=== PATIENT | female | born 1980 | race Caucasian/White ===

== ENCOUNTER 2017-09-21 08:00 | Inpatient (IN) | payer BC ==
[2017-09-22] MEDS ORDERED: ePHEDrine 50 MG/ML SDV IVPUSH PRN (06:00)
[2017-09-22] MEDS ORDERED: Carboprost Tromethamine 250 MCG/1 ML Amp IM ONE (06:00)
[2017-09-22] MEDS ORDERED: Misoprostol 400 MCG (4 X 100 MCG TAB) RECTAL PRN (06:00)
[2017-09-22] MEDS ORDERED: Tranexamic Acid 1,000 MG in Sodium Chloride 0.9% 100 ML IV PRN (06:00)
[2017-09-22] MEDS ORDERED: Ondansetron 4 MG/2 ML SDV IV PRN (06:00)
[2017-09-22] MEDS ORDERED: ceFAZolin 2 GM in Sodium Chloride 0.9% 50 ML IV ONE (06:00)
[2017-09-22] MEDS ORDERED: Naloxone 2 MG/2 ML Syringe IVPUSH PRN (06:00)
[2017-09-22] MEDS ORDERED: Docusate Sodium 100 MG Cap PO PRN (06:00)
[2017-09-22] MEDS ORDERED: Methylergonovine 0.2 MG/1 ML Amp IM PRN (06:00)
[2017-09-22] MEDS ORDERED: diphenhydrAMINE 50 MG/ML SDV IVPUSH PRN (06:00)
[2017-09-22] MEDS ORDERED: Acetaminophen 325 MG Tab PO PRN (06:00)
[2017-09-22] MEDS ORDERED: Acetaminophen/oxyCODONE 325-5 MG Tab PO PRN (06:00)
[2017-09-22] MEDS ORDERED: Oxytocin/Normal Saline 30 UNIT/500 ML BAG IV ONE (06:09)
[2017-09-22] MEDS ORDERED: Bupivacaine 0.75%/D5W 2 ML Amp ONE (06:09)
[2017-09-22] MEDS ORDERED: Midazolam 1 MG/ML 2 ML SDV IV ONE (06:09)
[2017-09-22] MEDS ORDERED: Metoclopramide 10 MG/2 ML SDV IV ONE (06:09)
[2017-09-22] MEDS ORDERED: Morphine PF 1 MG/ML Amp ONE (06:09)
[2017-09-22] MEDS ORDERED: fentaNYL 100 MCG/2 ML SDV IV ONE (06:09)
[2017-09-22] MEDS ORDERED: LACTATED RINGERS IV ONE (06:09)
[2017-09-22] MEDS ORDERED: Bupivacaine 0.5% 30 ML SDV INJECT ONE ×2 (06:09→08:30)
[2017-09-22] MEDS ORDERED: ePHEDrine 50 MG/ML SDV IV ONE (06:09)
[2017-09-22] MEDS ORDERED: Ketorolac 30 MG/ML SDV IVPUSH ONE (06:09)
[2017-09-22] MEDS: Lactated Ringers 1,000 ML IV SCH ×3 (06:52→17:39)
[2017-09-22] MEDS ORDERED: Oxytocin/Normal Saline 60 UNIT/1,000 ML BAG ONE (07:05)
[2017-09-22] MEDS ORDERED: Citric Acid/Sodium Citrate Solution 30 ML Cup PO ONE (07:36)
[2017-09-22] MEDS ORDERED: Bupivacaine 0.5% 30 ML SDV ONE (08:26)
[2017-09-22] MEDS ORDERED: Oxytocin/Normal Saline 30 UNIT/500 ML BAG IV SCH (12:00)
[2017-09-22] MEDS: Simethicone 80 MG Tab.Chew PO SCH ×4 (13:01→22:08)
[2017-09-22] MEDS: Ketorolac 30 MG/ML SDV IVPUSH SCH ×2 (14:23→20:00)
--- NOTE | 2017-09-22 14:41 | OR ---
DATE: 09/22/2017 PROCEDURE PERFORMED: Repeat section. INDICATION: Katharina is a 37-year-old, 4, para 2, who presents at 39 and 0/7 weeks gestation for repeat section. PROCEDURE IN DETAIL: After spinal anesthesia was placed, the patient was placed on the operative table and prepped and draped in sterile fashion. Lidocaine was used to anesthetize the skin layer, she still had some mild sensation after the spinal anesthesia. Skin was sharply incised and then carried down to the subcutaneous tissues. Immediately upon incision, it was noted to have significant amount of scar tissue. There were very poorly defined tissue planes and it was very difficult to use both sharp and blunt dissection to dissect down through the tissue plane towards the peritoneum. The peritoneum was bluntly entered. Uterine incision was then made and 8 pound 12 ounce was delivered through the uterine incision. There was clear amniotic fluid. Uterus was then closed using a single layer of 0 Vicryl suture. There was very good hemostasis post closure. Fascia was then closed using 0 Vicryl; however, because of the poor tissue planes, this repair was very difficult, especially on her right incisional margin, there were very poor tissue planes and significant scar tissue. After closure was completed, incision was checked with vigorous exploration. There was a good strength of incision after closure. Three simple interrupted sutures were placed to close the subcutaneous tissue, and then the skin was closed using 3-0 Monocryl suture on a Ilia needle. She had good hemostasis post closure. The patient tolerated the procedure well. PREOPERATIVE DIAGNOSIS: 4, para 2, with previous section. POSTPROCEDURE DIAGNOSIS: 4, para 3, with previous section. [facility] /[id number]
[2017-09-23] MEDS: Lactated Ringers 1,000 ML IV SCH (01:07)
[2017-09-23] MEDS: Ketorolac 30 MG/ML SDV IVPUSH SCH (01:55)
[2017-09-23] MEDS ORDERED: Ibuprofen 800 MG Tab PO PRN (10:00)
[2017-09-23] MEDS: Simethicone 80 MG Tab.Chew PO SCH ×4 (10:11→20:51)
[2017-09-23] MEDS: Prenatal Multivitamin with Calcium/Folic Acid/Iron Tab PO SCH (10:11)
--- NOTE | 2017-09-23 11:14 | PN ---
DATE: 09/23/2017 SUBJECTIVE: Katharina is postoperative day #1, status post repeat section. She is doing fairly well this morning. She had her Greenberg removed last night and was able to ambulate without difficulty. She was passing gas and having bowel sounds this morning. Nursing reports that nursing was going fairly well with her infant. She has no concerns this morning. OBJECTIVE: Vital Signs: This morning, blood pressure 105/48, pulse is 81, and respiratory rate 18. General: Katharina is a pleasant 37-year-old woman in no acute distress. Abdomen: Soft. Nontender to palpation. Bandage was removed this morning. Incision is clean, dry, and intact. ASSESSMENT: Postoperative day #1, status post repeat section. PLAN: 1. She will get up and ambulate more today if possible. 2. Anticipate possible discharge tomorrow if all things continue to go well. [facility] /[id number] FRANCESCA
[2017-09-23] MEDS: Acetaminophen/oxyCODONE 325-5 MG Tab PO PRN (23:43)
[2017-09-24] MEDS: Acetaminophen/oxyCODONE 325-5 MG Tab PO PRN ×4 (01:01→11:18)
[2017-09-24 08:21] VITALS: BP 117/71
[2017-09-24] MEDS: Prenatal Multivitamin with Calcium/Folic Acid/Iron Tab PO SCH (11:21)
[2017-09-24] MEDS: Simethicone 80 MG Tab.Chew PO SCH (11:26)
== END 2017-09-24 11:30 | disposition home or self-care (01) | DRG 540 ==
LOC: DL.MS 09-22 06:08 → OBSVTOIN 09-22 08:41 → DL.MS 09-22 08:41
PROVIDERS: ADMIT Family Medicine; ATTEND Family Medicine
PROC: 10D00Z1 Extraction of Products of Conception, Low, Open Approach (ICD-10-PCS; principal; 2017-09-22)
DX: O34.211 Maternal care for low transverse scar from previous cesarean delivery (principal); Z3A.39 39 weeks gestation of pregnancy; Z37.0 Single live birth
CPT/HCPCS: 36415; 51701; 51702; 59025; 85027; 85460; 86850; 86870; 86900; 86901; 94010; A9270-GY; J0690; J1885; J2250; J2274; J2590; J2765; J2790; J3010; J7050; J7120

== ENCOUNTER 2019-09-02 10:04 | Inpatient (IN) | payer BC, OTHER ==
[~2019-09-02 10:04] MED LIST: Lactated Ringers 1,000 ML IV SCH; Oxytocin/Normal Saline 30 UNIT/500 ML BAG IV SCH; Sodium Chloride 0.9% 10 ML Syringe FLUSH PRN; Tranexamic Acid 1,000 MG in Sodium Chloride 0.9% 100 ML IV PRN
[2019-09-02] MEDS ORDERED: Oxytocin/Normal Saline 60 UNIT/1,000 ML BAG ONE (10:36)
[2019-09-02] MEDS ORDERED: Ondansetron 4 MG/2 ML SDV IVPUSH STA (10:45)
[2019-09-02] MEDS ORDERED: Ondansetron 4 MG/2 ML SDV ONE (10:51)
[2019-09-02] MEDS ORDERED: ceFAZolin 2 GM in Premix Bag 1 BAG IV ONE (11:30)
[2019-09-02] MEDS ORDERED: Citric Acid/Sodium Citrate Solution 30 ML Cup PO ONE (11:30)
[2019-09-02] MEDS: Lactated Ringers 1,000 ML IV SCH ×2 (11:39→18:42)
[2019-09-02] MEDS ORDERED: Ketorolac 30 MG/ML SDV IVPUSH ONE (14:00)
[2019-09-02] MEDS ORDERED: Ketorolac 30 MG/ML SDV ONE (14:49)
[2019-09-02] MEDS ORDERED: diphenhydrAMINE 50 MG/ML SDV IV ONE (15:57)
[2019-09-02] MEDS ORDERED: Lactated Ringers 400 ML IV ONE (15:57)
[2019-09-02] MEDS ORDERED: Morphine PF 1 MG/ML Amp ONE (15:57)
[2019-09-02] MEDS ORDERED: fentaNYL 100 MCG/2 ML SDV ONE (15:57)
[2019-09-02] MEDS ORDERED: Oxytocin/Normal Saline 30 UNIT/500 ML BAG IV ONE (15:59)
[2019-09-02] MEDS: Ketorolac 30 MG/ML SDV IVPUSH SCH (19:57)
[2019-09-02] MEDS ORDERED: Naloxone 2 MG/2 ML Syringe IVPUSH PRN (20:28)
[2019-09-02] MEDS ORDERED: diphenhydrAMINE 50 MG/ML SDV IVPUSH PRN (20:28)
[2019-09-02] MEDS ORDERED: Acetaminophen/oxyCODONE 325-5 MG Tab PO PRN (20:28)
[2019-09-02] MEDS ORDERED: ePHEDrine 50 MG/ML SDV IVPUSH PRN (20:28)
[2019-09-02] MEDS ORDERED: Carboprost Tromethamine 250 MCG/1 ML Amp IM PRN (20:28)
[2019-09-02] MEDS ORDERED: Acetaminophen 325 MG Tab PO PRN (20:28)
[2019-09-02] MEDS ORDERED: Misoprostol 400 MCG (4 X 100 MCG TAB) RECTAL PRN (20:28)
[2019-09-02] MEDS ORDERED: Methylergonovine 0.2 MG/1 ML Amp IM PRN (20:28)
[2019-09-02] MEDS ORDERED: Docusate Sodium 100 MG Cap PO PRN (20:28)
[2019-09-02] MEDS ORDERED: Ondansetron 4 MG/2 ML SDV IVPUSH PRN (20:28)
[2019-09-02] MEDS ORDERED: Lactated Ringers 1,000 ML IV SCH (20:30)
--- NOTE | 2019-09-02 20:37 | PCM.HPR ---
H & P Addendum review - H & P Addendum Review Date of Original H & P: 09/01/19 Date Reviewed: 09/02/19 Time Reviewed: 10:50 Patient was Examined: No Changes
--- NOTE | 2019-09-02 20:37 | PCM.PRNOTE ---
- Free Text/Narrative Note: Section Operative Report Date of Surgery: 09/02/2019 Surgeon: Bettye Ritchie MD Putty Maker: Davis Robles MD Pre-Operative Diagnosis: at 39w0d gestation History of section x3 Post-Operative Diagnosis: Same Procedure Performed: Repeat low transverse section Anesthesia: Spinal EBL: 600 mL IVF: 700 mL Drains: Greenberg catheter with 250 mL of urine output Specimens: None Complications: None apparent Findings: Normal uterus, tubes, and ovaries. Indication and Consent: The patient presented to floor today for scheduled at term due to hx of prior and desire for elective repeat . The patient understood that the risks of section include, but are not limited to, visceral or vascular injury, infection, blood loss and need for blood transfusion, prolonged hospitalization, and reoperation. The patient again stated understanding and desired to proceed. All questions were answered. Procedure in Detail: The patient was taken to the operating room where spinal anesthesia was placed and found to be adequate. 2 grams of cefazolin (Ancef) were given for infection prophylaxis. She was then prepped and draped in routine fashion in dorsal supine position with a left perez tilt. Greenberg catheter and pneumoboots were placed. A Pfannenstiel skin incision was made with a scalpel. The incision was carried down to the fascia sharply. The fascia was incised and extended laterally. Fascia and rectus muscle were noted to be scarred togther. The inferior aspect of the fascia was dissected off the fascia minimally with blunt technique. Hemostasis was achieved with the Bovie. The rectus musculature was in the midline down to the level of the pubic symphysis. Pre-peritoneal fatty ti ssue was bluntly dissected to expose the peritoneum. The peritoneum was found to be free of adherent bowel or bladder tissue and entered bluntly. The peritoneal opening was then extended superiorly and inferiorly to the bladder reflection with good visualization of the bladder. The Yoel retractor was inserted. Intraabdominal survey revealed scant, clear peritoneal fluid and thinned-out lower uterine segment. The lower uterine segment was incised with a scalpel. The amniotic sac was ruptured with an Allis clamp and clear fluid was noted. The uterine incision was extended bluntly with lateral and upward traction. The fetus was in cephalic position. The head was elevated out of the maternal pelvis with special attention paid to avoid using the uterine incision as a fulcrum. Gentle fundal pressure was applied once the head was brought into the incision. The was delivered with minimal difficulty, with use of a Kiwi vacuum for 1 pull. Bulb suctioning of the infant's nose and mouth was not performed on the operative field. Infant was left on mother's abdomen until the umbilical cord stopped pulsing. The cord was clamped and cut in standard fashion, and the infant was handed over to the awaiting nursery staff. IV oxytocin was initiated to facilitate uterine contractions. Cord blood was collected. The placenta was delivered intact with manual message of the uterine fundus along with gentle cord traction. The inside of the uterus was gently wiped with a lap sponge to assure complete removal of remaining products of conception. The uterine incision was closed with 0 -Vicryl suture in a running locked fashion. The incision was inspected and hemostasis was achieved. The ovaries and tubes were visualized and found to be normal. The uterus, tubes, and ovaries were returned to the abdominal cavity. The blood clots and fluid were wiped out of the abdomen and pelvis with moist laparotomy sponges. The uterine incision was re-inspected along with all other incised surfaces and good hemostasis was confirmed. The Yoel retractor was removed. The peritoneal layer was then reapproximated with 2-0 Vicryl. The fascia was then closed with 2-0 looped PDS suture with care not to include any underlying abdominal contents. The skin was closed with 4-0 Vicryl suture on a Ilia needle in a subcuticular fashion. Sponge and instrument counts were reported as correct times two. Pt tolerated procedure well and was taken to PACU in stable condition. Bettye Ritchie MD
--- NOTE | 2019-09-02 20:42 | PCM.DEL ---
L & D Note - General Info Date of Service: 09/02/19 Mother's Due Date: 09/09/19 - Delivery Note Delivery Outcome: Livebirth Infant Delivery Method: Repeat Infant Delivery Mode: Vacuum Extraction Presentation: Vertex Nuchal Cord: None Anesthesia Type: Spinal Amniotic Fluid Description: Clear Placenta: Intact Cord: 3 Vessels Estimated Blood Loss: 600 Mora: Bulb Syringe, Stimulated, Warmed, [place] Used, Warmer Used Provider: Bettye Ritchie Score 1 min: 8 Score 5 min: 9 Delivery Comments (Free Text/Narrative):: Please see procedure note for details - General Info Date of Service: 09/02/19 - Patient Data Vitals - Most Recent: Last Vital Signs Temp 36.8 C 09/02/19 20:00 Pulse 81 09/02/19 20:00 Resp 16 09/02/19 20:00 BP 109/59 L 09/02/19 20:00 Pulse Ox 98 09/02/19 20:00 Weight - Most Recent: 78.925 kg I&O - Last 24 Hours: Intake & Output 09/02/19 09/02/19 09/02/19 06:59 14:59 22:59 Intake Total 178 Output Total 250 1000 Balance -72 -1000 Lab Results Last 24 Hours: Laboratory Results - last 24 hr 09/02/19 09/02/19 09/02/19 Range/Units 10:30 10:42 10:42 WBC 6.2 (5.0-10.0) 10^3/uL RBC 3.63 L (4.2-5.4) 10^6/uL Hgb 12.3 (12.0-16.0) g/dL Hct 35.8 L (37.0-47.0) % MCV 98.6 D (80-100) fL MCH 33.9 (27.0-34.0) pg MCHC 34.4 (33.0-35.0) g/dL Plt Count 209 (150-450) 10^3/uL Neut % (Auto) 62.2 (42.2-75.2) % Lymph % (Auto) 27.4 (20.5-50.1) % [place] % (Auto) 8.8 H (2-8) % Eos % (Auto) 1.3 (1.0-3.0) % Baso % (Auto) 0.3 (0.0-1.0) % SARS-CoV-2 RNA (RT-PCR) Negative (NEGATIVE) Blood Type A NEGATIVE Gel Antibody Screen Positive Med Orders - Current: Current Medications Acetaminophen (Tylenol) 650 mg PO Q6H PRN PRN Reason: mild pain or fever Carboprost Tromethamine (Hemabate Ds) 250 mcg IM ONETIME PRN PRN Reason: Bleeding Diphenhydramine HCl (Benadryl) 25 mg IVPUSH Q6H PRN PRN Reason: Itching or Nausea Docusate Sodium (Colace) 100 mg PO Q12H PRN PRN Reason: Constipation Ephedrine Sulfate (Ephedrine Sulfate) 5 mg IVPUSH SEECOMMENT PRN PRN Reason: Other Tranexamic Acid 1,000 mg/ (Sodium Chloride) 110 mls @ 660 mls/hr IV ONETIME PRN PRN Reason: Bleeding Oxytocin/Sodium Chloride (Pitocin In Ns 30 Unit/500 Ml) 30 unit in 500 mls @ 2 mls/hr IV TITRATE EILEEN; Protocol Last Titration: 09/02/19 15:45 Dose: 0 munits/min, 0 mls/hr Documented by: Lactated Ringer's (Ringers, Lactated) 1,000 mls @ 125 mls/hr IV ASDIRECTED EILEEN Ibuprofen (Motrin) 800 mg PO Q8H PRN PRN Reason: mild pain or fever Ketorolac Tromethamine (Toradol) 15 mg IVPUSH Q6H EILEEN Stop: 09/03/19 08:01 Last Admin: 09/02/19 19:57 Dose: 15 mg Documented by: Methylergonovine Maleate (Methergine) 0.2 mg IM ONETIME PRN PRN Reason: Excessive Vaginal Bleeding Misoprostol (Cytotec) 800 mcg RECTAL ASDIRECTED PRN PRN Reason: Excessive bleeding Naloxone HCl (Narcan) 0.1 mg IVPUSH SEECOMMENT PRN PRN Reason: Respiratory Depression Ondansetron HCl (Zofran) 4 mg IVPUSH Q4H PRN PRN Reason: Nausea/Vomiting Oxycodone/Acetaminophen (Percocet 325-5 Mg) 1 tab PO Q4H PRN PRN Reason: Pain (moderate 4-6) Oxycodone/Acetaminophen (Percocet 325-5 Mg) 2 tab PO Q4H PRN PRN Reason: Pain (moderate 4-6) Simethicone (Simethicone) 160 mg PO QID [facility] Sodium Chloride (Saline Flush) 10 ml FLUSH ASDIRECTED PRN PRN Reason: Keep Vein Open Discontinued Medications Citric Acid/Sodium Citrate (Bicitra Solution) 30 ml PO ONETIME ONE Stop: 09/02/19 11:31 Last Admin: 09/02/19 11:38 Dose: 30 ml Documented by: Diphenhydramine HCl (Benadryl) 25 mg IV .STK-MED ONE Stop: 09/02/19 15:58 Fentanyl (Sublimaze) 20 mcg .XX .STK-MED ONE Stop: 09/02/19 15:58 Cefazolin Sodium/Dextrose 2 gm (/ Premix) 50 mls @ 100 mls/hr IV ONETIME ONE Stop: 09/02/19 11:59 Last Admin: 09/02/19 10:44 Dose: 100 mls/hr Documented by: Lactated Ringer's (Ringers, Lactated) 1,000 mls @ 125 mls/hr IV ASDIRECTED EILEEN Last Admin: 09/02/19 18:42 Dose: 125 mls/hr Documented by: Lactated Ringer's (Ringers, Lactated) 1,000 mls @ 500 mls/hr IV .BOLUS [facility] Last Admin: 09/02/19 10:54 Dose: 500 mls/hr Documented by: Oxytocin/Sodium Chloride (Pitocin In Ns 30 Unit/500 Ml) Confirm Administered Dose 60 unit in 1,000 mls @ as directed .ROUTE .STK-MED ONE Stop: 09/02/19 10:37 Lactated Ringer's (Ringers, Lactated) 400 mls @ as directed IV .STK-MED ONE Stop: 09/02/19 15:58 Oxytocin/Sodium Chloride (Pitocin In Ns 30 Unit/500 Ml) 30 unit in 500 mls @ as directed IV .STK-MED ONE Stop: 09/02/19 16:00 Ketorolac Tromethamine (Toradol) 30 mg IVPUSH ONETIME ONE Stop: 09/02/19 14:01 Last Admin: 09/02/19 14:56 Dose: 30 mg Documented by: Ketorolac Tromethamine (Toradol) Confirm Administered Dose 30 mg .ROUTE .STK-MED ONE Stop: 09/02/19 14:50 Last Admin: 09/02/19 16:40 Dose: Not Given Documented by: Morphine Sulfate (Duramorph Pf) 0.15 mg .XX .STK-MED ONE Stop: 09/02/19 15:58 Ondansetron HCl (Zofran) 4 mg IVPUSH ONETIME STA Stop: 09/02/19 10:46 Last Admin: 09/02/19 10:53 Dose: 4 mg Documented by: Ondansetron HCl (Zofran) Confirm Administered Dose 4 mg .ROUTE .STK-MED ONE Stop: 09/02/19 10:52 Last Admin: 09/02/19 16:40 Dose: Not Given Documented by: - Problem List & Annotations (1) care in third trimester SNOMED Code(s): 808481028, 67420296, 39752751, 952158708, 944005247 Code(s): Z34.93 - ENCNTR FOR SUPRVSN OF NORMAL PREG, UNSP, THIRD TRIMESTER Status: Acute Current Visit: Yes (2) Rh negative status during SNOMED Code(s): 337576563 Code(s): O26.899 - OTH RELATED CONDITIONS, UNSPECIFIED TRIMESTER; Z67.91 - UNSPECIFIED BLOOD TYPE, RH NEGATIVE Status: Acute Current Visit: Yes (3) Impaired glucose tolerance during Status: Acute Current Visit: Yes (4) History of section SNOMED Code(s): 312192648 Code(s): Z98.891 - HISTORY OF UTERINE SCAR FROM PREVIOUS SURGERY Status: Acute Current Visit: Yes (5) S/P repeat low transverse SNOMED Code(s): 906853008, 89654476, 812432131, 543485785, 231414560 Code(s): Z98.891 - HISTORY OF UTERINE SCAR FROM PREVIOUS SURGERY Status: Acute Current Visit: No - Problem List Review Problem List Initiated/Reviewed/Updated: Yes - My Orders Last 24 Hours: My Active Orders 09/02/19 Breakfast Clear Liquid Diet [DIET] 09/02/19 09:46 Sodium Chloride 0.9% [Saline Flush] 10 ml FLUSH ASDIRECTED PRN Tranexamic Acid [Cyklokapron] 1,000 mg Sodium Chloride 0.9% [Normal Saline] 100 ml IV ONETIME Resuscitation Status Routine 09/02/19 09:47 Patient Status [ADT] Routine Notify Provider Vital Signs OB [RC] ASDIRECTED Peripheral IV Care [RC] 06,,22 RT Incentive Spirometry [RC] ASDIRECTED Peripheral IV Insertion Adult [OM.PC] Routine 09/02/19 10:00 Oxytocin/Normal Saline [Pitocin in NS 30 UNIT/500 ML] 30 unit in 500 ml IV TITRATE 09/02/19 10:42 ANTIBODY IDENTIFICATION [BBK] Routine TYPE AND SCREEN [BBK] Routine WEAK D TEST [BBK] Routine 09/02/19 20:00 Ketorolac [Toradol] 15 mg IVPUSH Q6H 09/02/19 20:28 Antiembolic Devices [RC] PER UNIT ROUTINE Bedrest [RC] ASDIRECTED Communication Order [RC] PER UNIT ROUTINE Communication Order [RC] PER UNIT ROUTINE Communication Order [RC] Per Unit Routine Intake and Output [RC] Q8H Notify Provider Intake and Out [RC] ASDIRECTED RT Incentive Spirometry [RC] Q2HWA Urinary Catheter Removal [RC] Per Unit Routine Vital Signs [RC] PER UNIT ROUTINE Acetaminophen [Tylenol] 650 mg PO Q6H PRN Acetaminophen/oxyCODONE [Percocet 325-5 MG] 1 tab PO Q4H PRN Acetaminophen/oxyCODONE [Percocet 325-5 MG] 2 tab PO Q4H PRN Carboprost Tromethamine [Hemabate DS] 250 mcg IM ONETIME PRN Docusate Sodium [Colace] 100 mg PO Q12H PRN Ibuprofen [Motrin] 800 mg PO Q8H PRN Methylergonovine [Methergine] 0.2 mg IM ONETIME PRN Naloxone [Narcan] 0.1 mg IVPUSH SEECOMMENT PRN Ondansetron [Zofran] 4 mg IVPUSH Q4H PRN diphenhydrAMINE [Benadryl] 25 mg IVPUSH Q6H PRN ePHEDrine [ePHEDrine sulfate] 5 mg IVPUSH SEECOMMENT PRN miSOPROStoL [Cytotec] 800 mcg RECTAL ASDIRECTED PRN Antiembolic Hose [OM.PC] Per Unit Routine Assess Lochia [WOMSER] Per Unit Routine Assess Uterine Involution [WOMSER] Per Unit Routine Breast Pump [WOMSER] Per Unit Routine Sequential Compression Device [OM.PC] Per Unit Routine 09/02/19 20:30 Lactated Ringers @ 125 MLS/HR(1000ml) Lactated Ringers [Ringers, Lactated] 1,000 ml IV ASDIRECTED 09/02/19 21:00 Simethicone 160 mg PO QID 09/03/19 12:00 CBC W/O DIFF,HEMOGRAM [HEME] Routine - Assessment Assessment:: 39-year-old, now , status post repeat low transverse section at 39w0d - Plan Plan:: 1. Initiate routine postoperative cares 2. Plans to breastfeed 3. Anticipate discharge 09/05/2019 Bettye Ritchie MD
[2019-09-02] MEDS: Simethicone 80 MG Tab.Chew PO SCH (23:36)
[2019-09-03] MEDS: Ketorolac 30 MG/ML SDV IVPUSH SCH ×2 (02:10→08:38)
[2019-09-03] MEDS: Simethicone 80 MG Tab.Chew PO SCH ×5 (08:38→22:24)
--- NOTE | 2019-09-03 09:09 | PCM.PNPP ---
- General Info Date of Service: 09/03/19 Subjective Update: Patient is doing well today. Urine output has been very good. [place] was removed this morning. Has been out of bed. Is passing gas. No bowel movement yet. is going well. Tolerating a general diet. No fever, chills, dizziness or lightheadedness. Pain is well controlled. No concerns per patient or per nursing staff. Functional Status: Reports: Pain Controlled, Tolerating Diet - Review of Systems General: Reports: No Symptoms HEENT: Reports: No Symptoms Pulmonary: Reports: No Symptoms Cardiovascular: Reports: No Symptoms Genitourinary: Reports: No Symptoms Musculoskeletal: Reports: No Symptoms Skin: Reports: No Symptoms - General Info Date of Service: 09/03/19 - Patient Data Vital Signs - Most Recent: Last Vital Signs Temp 36.2 C 09/03/19 04:07 Pulse 78 09/03/19 04:07 Resp 16 09/03/19 04:07 BP 108/52 L 09/03/19 04:07 Pulse Ox 99 09/03/19 04:07 Weight - Most Recent: 78.925 kg I&O - Last 24 Hours: Intake & Output 09/02/19 09/03/19 09/03/19 22:59 06:59 14:59 Output Total 1999 3200 2500 Balance -1999 -3200 -2500 Lab Results - Last 24 Hours: Laboratory Results - last 24 hr 09/02/19 09/02/19 09/02/19 Range/Units 10:30 10:42 10:42 WBC 6.2 (5.0-10.0) 10^3/uL RBC 3.63 L (4.2-5.4) 10^6/uL Hgb 12.3 (12.0-16.0) g/dL Hct 35.8 L (37.0-47.0) % MCV 98.6 D (80-100) fL MCH 33.9 (27.0-34.0) pg MCHC 34.4 (33.0-35.0) g/dL Plt Count 209 (150-450) 10^3/uL Neut % (Auto) 62.2 (42.2-75.2) % Lymph % (Auto) 27.4 (20.5-50.1) % [place] % (Auto) 8.8 H (2-8) % Eos % (Auto) 1.3 (1.0-3.0) % Baso % (Auto) 0.3 (0.0-1.0) % SARS-CoV-2 RNA (RT-PCR) Negative (NEGATIVE) Blood Type A NEGATIVE Gel Antibody Screen Positive Med Orders - Current: Current Medications Acetaminophen (Tylenol) 650 mg PO Q6H PRN PRN Reason: mild pain or fever Carboprost Tromethamine (Hemabate Ds) 250 mcg IM ONETIME PRN PRN Reason: Bleeding Diphenhydramine HCl (Benadryl) 25 mg IVPUSH Q6H PRN PRN Reason: Itching or Nausea Docusate Sodium (Colace) 100 mg PO Q12H PRN PRN Reason: Constipation Ephedrine Sulfate (Ephedrine Sulfate) 5 mg IVPUSH SEECOMMENT PRN PRN Reason: Other Tranexamic Acid 1,000 mg/ (Sodium Chloride) 110 mls @ 660 mls/hr IV ONETIME PRN PRN Reason: Bleeding Oxytocin/Sodium Chloride (Pitocin In Ns 30 Unit/500 Ml) 30 unit in 500 mls @ 2 mls/hr IV TITRATE EILEEN; Protocol Last Titration: 09/02/19 15:45 Dose: 0 munits/min, 0 mls/hr Documented by: Lactated Ringer's (Ringers, Lactated) 1,000 mls @ 125 mls/hr IV ASDIRECTED EILEEN Last Admin: 09/03/19 02:12 Dose: 125 mls/hr Documented by: Ibuprofen (Motrin) 800 mg PO Q8H PRN PRN Reason: mild pain or fever Methylergonovine Maleate (Methergine) 0.2 mg IM ONETIME PRN PRN Reason: Excessive Vaginal Bleeding Misoprostol (Cytotec) 800 mcg RECTAL ASDIRECTED PRN PRN Reason: Excessive bleeding Naloxone HCl (Narcan) 0.1 mg IVPUSH SEECOMMENT PRN PRN Reason: Respiratory Depression Ondansetron HCl (Zofran) 4 mg IVPUSH Q4H PRN PRN Reason: Nausea/Vomiting Oxycodone/Acetaminophen (Percocet 325-5 Mg) 1 tab PO Q4H PRN PRN Reason: Pain (moderate 4-6) Oxycodone/Acetaminophen (Percocet 325-5 Mg) 2 tab PO Q4H PRN PRN Reason: Pain (moderate 4-6) Simethicone (Simethicone) 160 mg PO QID [facility] Last Admin: 09/03/19 08:38 Dose: 160 mg Documented by: Sodium Chloride (Saline Flush) 10 ml FLUSH ASDIRECTED PRN PRN Reason: Keep Vein Open Discontinued Medications Citric Acid/Sodium Citrate (Bicitra Solution) 30 ml PO ONETIME ONE Stop: 09/02/19 11:31 Last Admin: 09/02/19 11:38 Dose: 30 ml Documented by: Diphenhydramine HCl (Benadryl) 25 mg IV .STK-MED ONE Stop: 09/02/19 15:58 Fentanyl (Sublimaze) 20 mcg .XX .STK-MED ONE Stop: 09/02/19 15:58 Cefazolin Sodium/Dextrose 2 gm (/ Premix) 50 mls @ 100 mls/hr IV ONETIME ONE Stop: 09/02/19 11:59 Last Admin: 09/02/19 10:44 Dose: 100 mls/hr Documented by: Lactated Ringer's (Ringers, Lactated) 1,000 mls @ 125 mls/hr IV ASDIRECTED [facility] Last Admin: 09/02/19 18:42 Dose: 125 mls/hr Documented by: Lactated Ringer's (Ringers, Lactated) 1,000 mls @ 500 mls/hr IV .BOLUS [facility] Last Admin: 09/02/19 10:54 Dose: 500 mls/hr Documented by: Oxytocin/Sodium Chloride (Pitocin In Ns 30 Unit/500 Ml) Confirm Administered Dose 60 unit in 1,000 mls @ as directed .ROUTE .STK-MED ONE Stop: 09/02/19 10:37 Lactated Ringer's (Ringers, Lactated) 400 mls @ as directed IV .STK-MED ONE Stop: 09/02/19 15:58 Oxytocin/Sodium Chloride (Pitocin In Ns 30 Unit/500 Ml) 30 unit in 500 mls @ as directed IV .STK-MED ONE Stop: 09/02/19 16:00 Ketorolac Tromethamine (Toradol) 30 mg IVPUSH ONETIME ONE Stop: 09/02/19 14:01 Last Admin: 09/02/19 14:56 Dose: 30 mg Documented by: Ketorolac Tromethamine (Toradol) 15 mg IVPUSH Q6H EILEEN Stop: 09/03/19 08:01 Last Admin: 09/03/19 08:38 Dose: 15 mg Documented by: Ketorolac Tromethamine (Toradol) Confirm Administered Dose 30 mg .ROUTE .STK-MED ONE Stop: 09/02/19 14:50 Last Admin: 09/02/19 16:40 Dose: Not Given Documented by: Morphine Sulfate (Duramorph Pf) 0.15 mg .XX .STK-MED ONE Stop: 09/02/19 15:58 Ondansetron HCl (Zofran) 4 mg IVPUSH ONETIME STA Stop: 09/02/19 10:46 Last Admin: 09/02/19 10:53 Dose: 4 mg Documented by: Ondansetron HCl (Zofran) Confirm Administered Dose 4 mg .ROUTE .STK-MED ONE Stop: 09/02/19 10:52 Last Admin: 09/02/19 16:40 Dose: Not Given Documented by: - Interaction Infant Disposition, : [place] in Room with Family Infant Interaction: Holding Infant Infant Feeding: Breastfed Infant; Nursed Well Support Person: - Recovery Exam Fundal Tone: Firm Fundal Level: At Umbilicus Fundal Placement: Midline Lochia Amount: Scant Lochia Color: Rubra/Red Perineum Description: Intact, Minimal Bruising/Swelling Episiotomy/Laceration: None Bladder Status: Indwelling Catheter in Place Urinary Elimination: Indwelling Catheter - Exam General: Alert, Oriented Lungs: Clear to Auscultation, Normal Respiratory Effort Cardiovascular: Regular Rate, Regular Rhythm, No Murmurs GI/Abdominal Exam: Soft, Non-Tender Extremities: Pedal Edema (Trace bilaterally) Skin: Warm, Dry, Intact Wound/Incisions: Dressing Dry and Intact - Problem List & Annotations (1) care in third trimester SNOMED Code(s): 137782459, 25409265, 23219706, 611672034, 396073120 Code(s): Z34.93 - ENCNTR FOR SUPRVSN OF NORMAL PREG, UNSP, THIRD TRIMESTER Status: Acute Current Visit: Yes (2) Rh negative status during SNOMED Code(s): 781745375 Code(s): O26.899 - OTH RELATED CONDITIONS, UNSPECIFIED TRIMESTER; Z67.91 - UNSPECIFIED BLOOD TYPE, RH NEGATIVE Status: Acute Current Visit: Yes (3) Impaired glucose tolerance during Status: Acute Current Visit: Yes (4) History of section SNOMED Code(s): 831588942 Code(s): Z98.891 - HISTORY OF UTERINE SCAR FROM PREVIOUS SURGERY Status: Acute Current Visit: Yes (5) S/P repeat low transverse SNOMED Code(s): 410246236, 27791999, 014376023, 717729489, 788258781 Code(s): Z98.891 - HISTORY OF UTERINE SCAR FROM PREVIOUS SURGERY Status: Acute Current Visit: No - Problem List Review Problem List Initiated/Reviewed/Updated: Yes - My Orders Last 24 Hours: My Active Orders 09/02/19 09:46 Sodium Chloride 0.9% [Saline Flush] 10 ml FLUSH ASDIRECTED PRN Tranexamic Acid [Cyklokapron] 1,000 mg Sodium Chloride 0.9% [Normal Saline] 100 ml IV ONETIME Resuscitation Status Routine 09/02/19 09:47 Patient Status [ADT] Routine Notify Provider Vital Signs OB [RC] ASDIRECTED Peripheral IV Care [RC] 06,, RT Incentive Spirometry [RC] ASDIRECTED Peripheral IV Insertion Adult [OM.PC] Routine 09/02/19 10:00 Oxytocin/Normal Saline [Pitocin in NS 30 UNIT/500 ML] 30 unit in 500 ml IV TITRATE 09/02/19 10:42 ANTIBODY IDENTIFICATION [BBK] Routine TYPE AND SCREEN [BBK] Routine WEAK D TEST [BBK] Routine 09/02/19 20:28 Antiembolic Devices [RC] PER UNIT ROUTINE Intake and Output [RC] Q8H Notify Provider Intake and Out [RC] ASDIRECTED RT Incentive Spirometry [RC] Q2HWA Vital Signs [RC] PER UNIT ROUTINE Acetaminophen [Tylenol] 650 mg PO Q6H PRN Acetaminophen/oxyCODONE [Percocet 325-5 MG] 1 tab PO Q4H PRN Acetaminophen/oxyCODONE [Percocet 325-5 MG] 2 tab PO Q4H PRN Carboprost Tromethamine [Hemabate DS] 250 mcg IM ONETIME PRN Docusate Sodium [Colace] 100 mg PO Q12H PRN Ibuprofen [Motrin] 800 mg PO Q8H PRN Methylergonovine [Methergine] 0.2 mg IM ONETIME PRN Naloxone [Narcan] 0.1 mg IVPUSH SEECOMMENT PRN Ondansetron [Zofran] 4 mg IVPUSH Q4H PRN diphenhydrAMINE [Benadryl] 25 mg IVPUSH Q6H PRN ePHEDrine [ePHEDrine sulfate] 5 mg IVPUSH SEECOMMENT PRN miSOPROStoL [Cytotec] 800 mcg RECTAL ASDIRECTED PRN Antiembolic Hose [OM.PC] Per Unit Routine Assess Lochia [WOMSER] Per Unit Routine Assess Uterine Involution [WOMSER] Per Unit Routine Breast Pump [WOMSER] Per Unit Routine Sequential Compression Device [OM.PC] Per Unit Routine 09/02/19 20:30 Lactated Ringers [Ringers, Lactated] 1,000 ml IV ASDIRECTED 09/02/19 21:00 Simethicone 160 mg PO QID 09/03/19 12:00 CBC W/O DIFF,HEMOGRAM [HEME] Routine - Assessment Assessment:: 39-year-old, now , POD#1 status post repeat low transverse section at 39w0d - Plan Plan:: 1. Continue routine postoperative cares 2. 3. Anticipate discharge 09/05/2019 Bettye Ritchie MD
[2019-09-03] MEDS: Ibuprofen 800 MG Tab PO PRN (15:17)
[2019-09-03] MEDS: Acetaminophen/oxyCODONE 325-5 MG Tab PO PRN ×2 (16:12→20:07)
[2019-09-04] MEDS: Ibuprofen 800 MG Tab PO PRN ×2 (00:05→12:29)
[2019-09-04] MEDS: Acetaminophen/oxyCODONE 325-5 MG Tab PO PRN ×3 (01:45→10:09)
[2019-09-04] MEDS ORDERED: Oxytocin/Normal Saline 30 UNIT/500 ML BAG IV ONE (02:14)
--- NOTE | 2019-09-04 08:41 | PCM.DCSUM1 ---
Discharge Summary - Hospital Course Free Text/Narrative:: 39-year-old, now , POD#2 status post repeat section at 39w0d Diagnosis: Stroke: No - Discharge Data Discharge Date: 09/04/19 Discharge Disposition: Home, Self-Care 01 Condition: Good - Referral to Home Health Primary Care Physician: Laisha Ritchie MD - Discharge Diagnosis/Problem(s) (1) care in third trimester SNOMED Code(s): 763620146, 82167285, 77702481, 550121881, 193490656 ICD Code: Z34.93 - ENCNTR FOR SUPRVSN OF NORMAL PREG, UNSP, THIRD TRIMESTER Status: Acute Current Visit: Yes (2) Rh negative status during SNOMED Code(s): 067196862 ICD Code: O26.899 - OTH RELATED CONDITIONS, UNSPECIFIED TRIMESTER; Z67.91 - UNSPECIFIED BLOOD TYPE, RH NEGATIVE Status: Acute Current Visit: Yes (3) Impaired glucose tolerance during Status: Acute Current Visit: Yes (4) History of section SNOMED Code(s): 502295082 ICD Code: Z98.891 - HISTORY OF UTERINE SCAR FROM PREVIOUS SURGERY Status: Acute Current Visit: Yes (5) S/P repeat low transverse SNOMED Code(s): 984767652, 92416886, 829438517, 982415095, 607981362 ICD Code: Z98.891 - HISTORY OF UTERINE SCAR FROM PREVIOUS SURGERY Status: Acute Current Visit: No - Patient Summary/Data Operative Procedure(s) Performed: Repeat section Complications: None Consults: None Labs Pending at D/C: None Recommended Follow-up Testing/Procedures: None Planned Operative Procedure(s) after DC: None Hospital Course: Please see subjective section - Patient Instructions Diet: Usual Diet as Tolerated Activity: As Tolerated Driving: Do Not Drive (while taking pain medication) Showering/Bathing: May Shower Wound/Incision Care: Keep Operative Site/Wound Site Clean and Dry Notify Provider of: Fever, Increased Pain, Swelling and Redness - Discharge Plan *PRESCRIPTION DRUG MONITORING PROGRAM REVIEWED*: No *COPY OF PRESCRIPTION DRUG MONITORING REPORT IN PATIENT ALEIDA: No Home Medications: Home Meds No122/Iron/Folic Acid [ Multi Tablet] 1 tab PO DAILY 09/19/15 [History] Acetaminophen [Tylenol] 650 mg PO Q6H PRN tablet 09/24/17 [Rx] Acetaminophen/oxyCODONE [Percocet 325-5 MG] 1 tab PO Q4H PRN tablet 09/04/19 [Rx] Docusate Sodium [Colace] 100 mg PO Q12H PRN cap 09/04/19 [Rx] Ibuprofen [Motrin] 800 mg PO Q8H PRN tablet 09/04/19 [Rx] - Discharge Summary/Plan Comment DC Time >30 min.: No Discharge Summary/Plan Comment: Discharge home today. Follow-up in 6-8 weeks for routine check. Will check incision at infant's weight check. Reasons to return were reviewed with patient, and all questions were answered. - General Info Date of Service: 09/04/19 Subjective Update: Patient is doing well. Voiding and passing gas. Has had a small bowel movement. Tolerating a general diet. Ambulating with minimal difficulty. Minimal vaginal bleeding but has noticed some bloody drainage from the incision site. No other concerns today. No fever, chills, dizziness or lightheadedness. No concerns per nursing staff. Functional Status: Reports: Pain Controlled, Tolerating Diet, Ambulating, Urinating. Denies: New Symptoms - Review of Systems General: Reports: No Symptoms HEENT: Reports: No Symptoms Pulmonary: Reports: No Symptoms Cardiovascular: Reports: No Symptoms Gastrointestinal: Reports: No Symptoms Genitourinary: Reports: No Symptoms Musculoskeletal: Reports: No Symptoms Skin: Reports: No Symptoms - Patient Data Vitals - Most Recent: Last Vital Signs Temp 36.6 C 09/04/19 00:00 Pulse 64 09/04/19 00:00 Resp 16 09/03/19 09:07 BP 118/69 09/04/19 00:00 Pulse Ox 100 09/04/19 00:00 Weight - Most Recent: 78.925 kg Lab Results - Last 24 hrs: Laboratory Results - last 24 hr 09/02/19 09/04/19 Range/Units 10:42 06:31 WBC 7.4 (5.0-10.0) 10^3/uL RBC 3.36 L (4.2-5.4) 10^6/uL Hgb 11.2 L (12.0-16.0) g/dL Hct 34.4 L (37.0-47.0) % MCV 102.4 H D (80-100) fL MCH 33.3 (27.0-34.0) pg MCHC 32.6 L (33.0-35.0) g/dL Plt Count 193 (150-450) 10^3/uL Antibody Identification Anti-D Med Orders - Current: Current Medications Acetaminophen (Tylenol) 650 mg PO Q6H PRN PRN Reason: mild pain or fever Carboprost Tromethamine (Hemabate Ds) 250 mcg IM ONETIME PRN PRN Reason: Bleeding Diphenhydramine HCl (Benadryl) 25 mg IVPUSH Q6H PRN PRN Reason: Itching or Nausea Docusate Sodium (Colace) 100 mg PO Q12H PRN PRN Reason: Constipation Ephedrine Sulfate (Ephedrine Sulfate) 5 mg IVPUSH SEECOMMENT PRN PRN Reason: Other Tranexamic Acid 1,000 mg/ (Sodium Chloride) 110 mls @ 660 mls/hr IV ONETIME PRN PRN Reason: Bleeding Oxytocin/Sodium Chloride (Pitocin In Ns 30 Unit/500 Ml) 30 unit in 500 mls @ 2 mls/hr IV TITRATE EILEEN; Protocol Last Titration: 09/02/19 15:45 Dose: 0 munits/min, 0 mls/hr Documented by: Lactated Ringer's (Ringers, Lactated) 1,000 mls @ 125 mls/hr IV ASDIRECTED EILEEN Last Admin: 09/03/19 02:12 Dose: 125 mls/hr Documented by: Ibuprofen (Motrin) 800 mg PO Q8H PRN PRN Reason: mild pain or fever Last Admin: 09/04/19 00:05 Dose: 800 mg Documented by: Methylergonovine Maleate (Methergine) 0.2 mg IM ONETIME PRN PRN Reason: Excessive Vaginal Bleeding Misoprostol (Cytotec) 800 mcg RECTAL ASDIRECTED PRN PRN Reason: Excessive bleeding Naloxone HCl (Narcan) 0.1 mg IVPUSH SEECOMMENT PRN PRN Reason: Respiratory Depression Ondansetron HCl (Zofran) 4 mg IVPUSH Q4H PRN PRN Reason: Nausea/Vomiting Oxycodone/Acetaminophen (Percocet 325-5 Mg) 1 tab PO Q4H PRN PRN Reason: Pain (moderate 4-6) Last Admin: 09/03/19 11:52 Dose: 1 tab Documented by: Oxycodone/Acetaminophen (Percocet 325-5 Mg) 2 tab PO Q4H PRN PRN Reason: Pain (moderate 4-6) Last Admin: 09/04/19 05:59 Dose: 2 tab Documented by: Simethicone (Simethicone) 160 mg PO QID [facility] Last Admin: 09/03/19 22:24 Dose: 160 mg Documented by: Sodium Chloride (Saline Flush) 10 ml FLUSH ASDIRECTED PRN PRN Reason: Keep Vein Open Discontinued Medications Citric Acid/Sodium Citrate (Bicitra Solution) 30 ml PO ONETIME ONE Stop: 09/02/19 11:31 Last Admin: 09/02/19 11:38 Dose: 30 ml Documented by: Diphenhydramine HCl (Benadryl) 25 mg IV .STK-MED ONE Stop: 09/02/19 15:58 Fentanyl (Sublimaze) 20 mcg .XX .STK-MED ONE Stop: 09/02/19 15:58 Cefazolin Sodium/Dextrose 2 gm (/ Premix) 50 mls @ 100 mls/hr IV ONETIME ONE Stop: 09/02/19 11:59 Last Admin: 09/02/19 10:44 Dose: 100 mls/hr Documented by: Lactated Ringer's (Ringers, Lactated) 1,000 mls @ 125 mls/hr IV ASDIRECTED [facility] Last Admin: 09/02/19 18:42 Dose: 125 mls/hr Documented by: Lactated Ringer's (Ringers, Lactated) 1,000 mls @ 500 mls/hr IV .BOLUS [facility] Last Admin: 09/02/19 10:54 Dose: 500 mls/hr Documented by: Oxytocin/Sodium Chloride (Pitocin In Ns 30 Unit/500 Ml) Confirm Administered Dose 60 unit in 1,000 mls @ as directed .ROUTE .STK-MED ONE Stop: 09/02/19 10:37 Lactated Ringer's (Ringers, Lactated) 400 mls @ as directed IV .STK-MED ONE Stop: 09/02/19 15:58 Oxytocin/Sodium Chloride (Pitocin In Ns 30 Unit/500 Ml) 30 unit in 500 mls @ as directed IV .STK-MED ONE Stop: 09/02/19 16:00 Ketorolac Tromethamine (Toradol) 30 mg IVPUSH ONETIME ONE Stop: 09/02/19 14:01 Last Admin: 09/02/19 14:56 Dose: 30 mg Documented by: Ketorolac Tromethamine (Toradol) 15 mg IVPUSH Q6H EILEEN Stop: 09/03/19 08:01 Last Admin: 09/03/19 08:38 Dose: 15 mg Documented by: Ketorolac Tromethamine (Toradol) Confirm Administered Dose 30 mg .ROUTE .STK-MED ONE Stop: 09/02/19 14:50 Last Admin: 09/02/19 16:40 Dose: Not Given Documented by: Morphine Sulfate (Duramorph Pf) 0.15 mg .XX .STK-MED ONE Stop: 09/02/19 15:58 Ondansetron HCl (Zofran) 4 mg IVPUSH ONETIME STA Stop: 09/02/19 10:46 Last Admin: 09/02/19 10:53 Dose: 4 mg Documented by: Ondansetron HCl (Zofran) Confirm Administered Dose 4 mg .ROUTE .STK-MED ONE Stop: 09/02/19 10:52 Last Admin: 09/02/19 16:40 Dose: Not Given Documented by: - Exam General: Reports: Alert, Oriented Lungs: Reports: Clear to Auscultation, Normal Respiratory Effort Cardiovascular: Reports: Regular Rate, Regular Rhythm, No Murmurs Extremities: Pedal Edema (Trace bilaterally) Skin: Reports: Warm, Dry, Intact Wound/Incisions: Reports: Healing Well, Drainage (Small to moderate amount of serosanguinous drainage). Denies: Erythema Neurological: Reports: No New Focal Deficit
[2019-09-04] MEDS: Simethicone 80 MG Tab.Chew PO SCH ×2 (09:27→12:29)
[2019-09-04 10:47] VITALS: BP 107/58; PULSE 73
== END 2019-09-04 02:15 | disposition home or self-care (01) | DRG 788 ==
LOC: DL.MS 10:04 → OBSVTOIN 12:25
PROVIDERS: ADMIT Family Medicine; ATTEND Family Medicine
PROC: 10D00Z1 Extraction of Products of Conception, Low, Open Approach (ICD-10-PCS; principal; 2019-09-02)
DX: O34.211 Maternal care for low transverse scar from previous cesarean delivery (principal); Z37.0 Single live birth; Z3A.39 39 weeks gestation of pregnancy; Z28.82 Immunization not carried out because of caregiver refusal
CPT/HCPCS: 36415; 59025; 85025; 85027; 86850; 86870; 86900; 86901; A9270-GY; J0690; J1200; J1885; J2274; J2405; J2590; J3010; J7120; U0002

== ENCOUNTER 2022-03-20 01:20 | Emergency (ER) | payer OTHER, MEDICAID ==
[2022-03-20 02:53] LABS: ANION GAP 12.7 mEq/L (7-13)
[2022-03-20 04:29] VITALS: BP 103/73; PULSE 88
== END 2022-03-20 05:19 | disposition home or self-care (01) ==
LOC: DL.ED 01:20
DX: O99.891 Other specified diseases and conditions complicating pregnancy (principal); R00.2 Palpitations; R00.0 Tachycardia, unspecified; M06.9 Rheumatoid arthritis, unspecified; Z88.1 Allergy status to other antibiotic agents; Z88.5 Allergy status to narcotic agent; Z88.8 Allergy status to other drugs, medicaments and biological substances; Z3A.33 33 weeks gestation of pregnancy
CPT/HCPCS: 36415; 80053; 81003; 83735; 84443; 84484; 85025; 93005; 99285

== ENCOUNTER 2022-05-02 10:01 | Inpatient (IN) | payer OTHER, MEDICAID ==
[~2022-05-02 10:01] MED LIST changes: +Carboprost Tromethamine 250 MCG/1 ML Amp IM PRN; +Methylergonovine 0.2 MG Tab PO PRN; +Oxytocin 10 Units/1 ML SDV IM PRN; +fentaNYL 100 MCG/2 ML SDV ONE
[2022-05-02] MEDS ORDERED: Ondansetron 4 MG/2 ML SDV IVPUSH ONE (10:29)
[2022-05-02] MEDS: Lactated Ringers 1,000 ML IV SCH ×3 (10:45→16:25)
[2022-05-02] MEDS ORDERED: Citric Acid/Sodium Citrate Solution 30 ML Cup PO ONE (11:00)
[2022-05-02] MEDS ORDERED: ceFAZolin 2 GM Vial IVPUSH ONE (11:00)
[2022-05-02] MEDS ORDERED: Oxytocin/Normal Saline 30 UNIT/500 ML BAG ONE ×2 (11:26→11:43)
[2022-05-02] MEDS ORDERED: Methylergonovine 0.2 MG/1 ML Amp ONE (11:43)
[2022-05-02] MEDS ORDERED: Famotidine 20 MG/2 ML SDV ONE (11:43)
[2022-05-02] MEDS ORDERED: Famotidine 20 MG/2 ML SDV IV ONE (12:00)
[2022-05-02] MEDS ORDERED: fentaNYL 100 MCG/2 ML SDV ONE (12:00)
[2022-05-02] MEDS ORDERED: Lactated Ringers 1,000 ML IV ONE (12:00)
[2022-05-02] MEDS ORDERED: Oxytocin/Normal Saline 30 UNIT/500 ML BAG IV ONE (12:00)
[2022-05-02] MEDS ORDERED: diphenhydrAMINE 50 MG/ML SDV IV ONE (12:00)
[2022-05-02] MEDS ORDERED: Dexamethasone 4 MG/ML SDV IV ONE (12:00)
[2022-05-02] MEDS ORDERED: ceFAZolin 2 GM Vial IV ONE (12:00)
[2022-05-02] MEDS ORDERED: ceFAZolin 2 GM Vial ONE (12:11)
[2022-05-02] MEDS ORDERED: diphenhydrAMINE 50 MG/ML SDV ONE (13:48)
[2022-05-02] MEDS ORDERED: Misoprostol 400 MCG (4 X 100 MCG TAB) RECTAL PRN (14:30)
[2022-05-02] MEDS ORDERED: Naloxone 2 MG/2 ML Syringe IVPUSH PRN (14:30)
[2022-05-02] MEDS ORDERED: diphenhydrAMINE 50 MG/ML SDV IVPUSH PRN (14:30)
[2022-05-02] MEDS ORDERED: ePHEDrine 50 MG/ML SDV IVPUSH PRN (14:30)
[2022-05-02] MEDS ORDERED: Ondansetron 4 MG/2 ML SDV IVPUSH PRN (14:30)
[2022-05-02] MEDS ORDERED: Ketorolac 30 MG/ML SDV IVPUSH ONE (14:30)
[2022-05-02] MEDS ORDERED: Acetaminophen 325 MG Tab PO PRN (14:30)
[2022-05-02] MEDS ORDERED: Methylergonovine 0.2 MG/1 ML Amp IM PRN (14:30)
[2022-05-02] MEDS ORDERED: Ketorolac 30 MG/ML SDV ONE (14:58)
[2022-05-02] MEDS: Simethicone 80 MG Tab.Chew PO SCH ×2 (17:05→21:26)
[2022-05-02] MEDS: Ketorolac 30 MG/ML SDV IVPUSH SCH (21:21)
[2022-05-03] MEDS: Lactated Ringers 1,000 ML IV SCH (00:25)
[2022-05-03] MEDS: Ketorolac 30 MG/ML SDV IVPUSH SCH ×2 (03:07→09:04)
[2022-05-03] MEDS: Sodium Chloride 0.9% 10 ML Syringe FLUSH SCH ×2 (06:20→09:05)
[2022-05-03] MEDS: Prenatal Multivitamin with Calcium/Folic Acid/Iron Tab PO SCH (09:04)
[2022-05-03] MEDS: Simethicone 80 MG Tab.Chew PO SCH ×4 (09:04→21:53)
[2022-05-03] MEDS: Docusate Sodium 100 MG Cap PO PRN ×2 (09:04→23:20)
[2022-05-03] MEDS: Acetaminophen/oxyCODONE 325-5 MG Tab PO PRN ×3 (13:55→21:59)
[2022-05-03] MEDS: Ibuprofen 800 MG Tab PO PRN (17:56)
[2022-05-04] MEDS: Ibuprofen 800 MG Tab PO PRN (02:38)
[2022-05-04] MEDS: Acetaminophen/oxyCODONE 325-5 MG Tab PO PRN ×2 (02:40→09:54)
[2022-05-04 08:56] VITALS: BP 122/68; PULSE 77
[2022-05-04] MEDS: Simethicone 80 MG Tab.Chew PO SCH (09:54)
[2022-05-04] MEDS: Prenatal Multivitamin with Calcium/Folic Acid/Iron Tab PO SCH (09:55)
[2022-05-04] MEDS: Docusate Sodium 100 MG Cap PO PRN (09:56)
[2022-05-04] MEDS ORDERED: Acetaminophen/oxyCODONE 325-5 MG Tab ONE (11:46)
[2022-05-04] MEDS ORDERED: Acetaminophen/oxyCODONE 325-5 MG Tab PO ONE (14:02)
== END 2022-05-04 14:03 | disposition home or self-care (01) | DRG 788 ==
LOC: DL.MS 10:01 → OBSVTOIN 12:32 → DL.MS 12:32
PROVIDERS: ADMIT Family Medicine; ATTEND Family Medicine
PROC: 10D00Z1 Extraction of Products of Conception, Low, Open Approach (ICD-10-PCS; principal; 2022-05-02)
DX: O34.211 Maternal care for low transverse scar from previous cesarean delivery (principal); Z37.0 Single live birth; Z3A.39 39 weeks gestation of pregnancy; Z20.822 Contact with and (suspected) exposure to COVID-19; Z87.891 Personal history of nicotine dependence
CPT/HCPCS: 01961; 01967; 36415; 36430; 59025; 85025; 85027; 85461; 86850; 86900; 86901; A9270-GY; J0690; J1100; J1200; J1885; J2405; J2590; J2790; J3010; J3490; J7120; U0002

== ENCOUNTER 2022-12-24 00:04 | Emergency (ER) | payer OTHER, MEDICAID, MEDICARE ==
[2022-12-24 00:22] VITALS: BP 139/92; PULSE 95
[2022-12-24 01:02] LABS: BASOPHILS PERCENT AUTO 0.2 % (0.0-1.0); EOSINOPHILS PERCENT AUTO 1.4 % (1.0-3.0); HEMATOCRIT 39.6 % (37.0-47.0); HEMOGLOBIN 13.3 g/dL (12.0-16.0); LYMPHOCYTES PERCENT AUTO 16.7 % (20.5-50.1); MEAN CORPUSCULAR HEMOGLOBIN 31.6 pg (27.0-34.0); MEAN CORPUSCULAR HGB CONC 33.6 g/dL (33.0-35.0); MEAN CORPUSCULAR VOLUME 94.1 fL (80-100); MONOCYTES PERCENT AUTO 6.9 % (2-8); NEUTROPHILS PERCENT AUTO 74.8 % (42.2-75.2); PLATELET COUNT,PLT 411 10^3/uL (150-450); RED BLOOD CELL COUNT 4.21 10^6/uL (4.2-5.4); WHITE BLOOD CELL COUNT,WBC 17.1 10^3/uL (5.0-10.0)
[2022-12-24 01:08] LABS: ALANINE AMINOTRANSFERASE,ALT 21 U/L (14-59); ALBUMIN 3.8 g/dL (3.4-5.0); ALKALINE PHOSPHATASE 85 U/L (46-116); AMYLASE 46 U/L (25-115); ASPARTATE AMNIOTRANSFERASE,AST 10 U/L (15-37); BILIRUBIN TOTAL 0.7 mg/dL (0.2-1.0); BLOOD UREA NITROGEN,BUN 9 mg/dL (7-18); BUN/CREATININE RATIO 11.8 (No establ ref range); C-REACTIVE PROTEIN 8.71 ng/dL (<=0.30); CALCIUM 9.4 mg/dL (8.5-10.1); CARBON DIOXIDE,CO2 26 mmol/L (21-32); CHLORIDE,CL 101 mmol/L (98-107); CREATININE 0.76 mg/dL (0.55-1.02); EST CRCL DRUG DOSING (CG) 69.97 mL/min; GLUCOSE RANDOM 141 mg/dL (70-99); LIPASE 25 U/L (16-77); PROTEIN TOTAL,TP 7.7 g/dL (6.4-8.2); SODIUM,NA 138 mmol/L (136-145)
[2022-12-24 01:12] LABS: ESTIMATED GFR 101 mL/min (>=60); ETHANOL BLOOD MEDICAL < 3 mg/dL (0)
[2022-12-24] MEDS ORDERED: Iopamidol 612 MG/ML 100 ML Bottle IVPUSH ONE (01:29)
[2022-12-24 02:11] LABS: APPEARANCE,URINE CLEAR (CLEAR); BILIRUBIN,URINE NEGATIVE (NEGATIVE); COLOR,URINE YELLOW (YELLOW); GLUCOSE,URINE NEGATIVE (NEGATIVE); KETONES,URINE NEGATIVE (NEGATIVE); LEUKOCYTE ESTERASE,URINE NEGATIVE (NEGATIVE); NITRITE,URINE NEGATIVE (NEGATIVE); OCCULT BLOOD,URINE NEGATIVE (NEGATIVE); PROTEIN,URINE TRACE (NEGATIVE); UROBILINOGEN,URINE 0.2 mg/dL (0.2-1.0)
[2022-12-24] MEDS ORDERED: Sodium Chloride 0.9% 1,000 ML IV SCH (02:15)
[2022-12-24 02:17] LABS: AMPHETAMINES,URINE NEGATIVE (NEGATIVE); BARBITURATES,URINE NEGATIVE (NEGATIVE); BENZODIAZEPINE,URINE NEGATIVE (NEGATIVE); MDMA (ECSTASY), URINE NEGATIVE (NEGATIVE); METHADONE,URINE NEGATIVE (NEGATIVE); METHAMPHETAMINES,URINE NEGATIVE (NEGATIVE); OPIATES,URINE POSITIVE (NEGATIVE); OXYCODONE,URINE NEGATIVE (NEGATIVE); PHENCYCLIDINE,URINE NEGATIVE (NEGATIVE); TCA,URINE NEGATIVE (NEGATIVE)
[2022-12-24] MEDS ORDERED: Ondansetron 4 MG/2 ML SDV IVPUSH ONE (02:17)
[2022-12-24] MEDS ORDERED: traMADol 50 MG Tab PO ONE (02:18)
[2022-12-24 02:22] LABS: BACTERIA,URINE MODERATE /HPF (0-FEW/HPF); EPITHELIAL CELLS,URINE MODERATE /HPF (NOT SEEN); RBC,URINE 0-5 /HPF (0-5)
[2022-12-24 02:47] LABS: LACTIC ACID 2.1 mmol/L (0.4-2.0)
[2022-12-24] MEDS ORDERED: Amoxicillin/Clavulanate K 875-125 MG Tab PO ONE (03:45)
[2022-12-24] MEDS ORDERED: Acetaminophen/HYDROcodone 325-5 MG Tab PO ONE (03:51)
== END 2022-12-24 04:14 | disposition home or self-care (01) ==
LOC: DL.ED 00:04
DX: K57.32 Diverticulitis of large intestine without perforation or abscess without bleeding (principal); Z88.1 Allergy status to other antibiotic agents; Z88.8 Allergy status to other drugs, medicaments and biological substances; Z79.899 Other long term (current) drug therapy
CPT/HCPCS: 36415; 74177; 80053; 80305; 80307; 81001; 82150; 83605; 83690; 84702; 84703; 85025; 86140; 96361; 96374; 99284; A9270; J2405; J7030; Q9967

== ENCOUNTER 2022-12-25 20:39 | Emergency (ER) | payer OTHER, MEDICAID, MEDICARE ==
[2022-12-25 21:04] VITALS: BP 144/74; PULSE 67
[2022-12-25 21:31] LABS: BASOPHILS PERCENT AUTO 0.4 % (0.0-1.0); EOSINOPHILS PERCENT AUTO 2.9 % (1.0-3.0); HEMATOCRIT 31.2 % (37.0-47.0); HEMOGLOBIN 10.2 g/dL (12.0-16.0); LYMPHOCYTES PERCENT AUTO 29.1 % (20.5-50.1); MEAN CORPUSCULAR HEMOGLOBIN 31.9 pg (27.0-34.0); MEAN CORPUSCULAR HGB CONC 32.7 g/dL (33.0-35.0); MEAN CORPUSCULAR VOLUME 97.5 fL (80-100); MONOCYTES PERCENT AUTO 8.6 % (2-8); PLATELET COUNT,PLT 323 10^3/uL (150-450)
[2022-12-25] MEDS: Acetaminophen 500 MG Tab PO ONE (21:33)
[2022-12-25 21:45] LABS: AMPHETAMINES,URINE NEGATIVE (NEGATIVE); BARBITURATES,URINE NEGATIVE (NEGATIVE); BENZODIAZEPINE,URINE NEGATIVE (NEGATIVE); MDMA (ECSTASY), URINE NEGATIVE (NEGATIVE); METHADONE,URINE NEGATIVE (NEGATIVE); METHAMPHETAMINES,URINE NEGATIVE (NEGATIVE); OPIATES,URINE NEGATIVE (NEGATIVE); OXYCODONE,URINE NEGATIVE (NEGATIVE); PHENCYCLIDINE,URINE NEGATIVE (NEGATIVE); TCA,URINE NEGATIVE (NEGATIVE)
[2022-12-25 21:46] LABS: APPEARANCE,URINE CLEAR (CLEAR); BILIRUBIN,URINE NEGATIVE (NEGATIVE); COLOR,URINE YELLOW (YELLOW); GLUCOSE,URINE NEGATIVE (NEGATIVE); KETONES,URINE NEGATIVE (NEGATIVE); LEUKOCYTE ESTERASE,URINE NEGATIVE (NEGATIVE); NITRITE,URINE NEGATIVE (NEGATIVE); OCCULT BLOOD,URINE NEGATIVE (NEGATIVE); PH,URINE 5.5 (5.0-9.0); PROTEIN,URINE NEGATIVE (NEGATIVE); UROBILINOGEN,URINE 0.2 mg/dL (0.2-1.0)
[2022-12-25 21:48] LABS: HCG QUALITATIVE,SERUM NEGATIVE (NEGATIVE)
[2022-12-25 21:53] LABS: ALANINE AMINOTRANSFERASE,ALT 19 U/L (14-59); ALKALINE PHOSPHATASE 85 U/L (46-116); ANION GAP 13.8 mEq/L (7-13); ASPARTATE AMNIOTRANSFERASE,AST 11 U/L (15-37); BILIRUBIN TOTAL 0.4 mg/dL (0.2-1.0); BLOOD UREA NITROGEN,BUN 4 mg/dL (7-18); BUN/CREATININE RATIO 8.9 (No establ ref range); C-REACTIVE PROTEIN 21.68 ng/dL (<=0.30); CALCIUM 9.2 mg/dL (8.5-10.1); CARBON DIOXIDE,CO2 25 mmol/L (21-32); CHLORIDE,CL 105 mmol/L (98-107); CREATININE 0.45 mg/dL (0.55-1.02); EST CRCL DRUG DOSING (CG) 118.17 mL/min; GLUCOSE RANDOM 95 mg/dL (70-99); LIPASE 19 U/L (16-77); MAGNESIUM 2.1 mg/dL (1.8-2.4); POTASSIUM,K 3.8 mmol/L (3.5-5.1); PROTEIN TOTAL,TP 6.8 g/dL (6.4-8.2); SODIUM,NA 140 mmol/L (136-145)
[2022-12-25 21:56] LABS: LACTIC ACID 0.5 mmol/L (0.4-2.0)
[2022-12-25 22:07] LABS: A/G RATIO 0.79; ESTIMATED GFR 124 mL/min (>=60); ETHANOL BLOOD MEDICAL < 3 mg/dL (0)
[2022-12-25] MEDS: Iopamidol 612 MG/ML 100 ML Bottle IVPUSH ONE (23:08)
== END 2022-12-26 00:36 | disposition home or self-care (01) ==
LOC: DL.ED 20:39
DX: K57.32 Diverticulitis of large intestine without perforation or abscess without bleeding (principal); Z86.16 Personal history of COVID-19; Z88.1 Allergy status to other antibiotic agents; Z88.8 Allergy status to other drugs, medicaments and biological substances; Z88.5 Allergy status to narcotic agent; Z79.899 Other long term (current) drug therapy
CPT/HCPCS: 36415; 74177; 80053; 80305; 80307; 81003; 83605; 83690; 83735; 84145; 84703; 85025; 86140; 99284; A9270; Q9967